=== PATIENT | male | born 1980 | race Caucasian/White ===

== ENCOUNTER 2020-03-26 15:39 | Emergency (ER) | payer OTHER, SELFPAY ==
[2020-03-26] VITALS (36 sets, daily range): BP systolic 134–176; BP diastolic 84–102; PULSE 50–77; RESP 12–19; TEMP 36.5–36.7; O2SAT 95–100
--- NOTE | 2020-03-26 15:51 | W.ED.GENAD ---
Discharge Plan Disposition Patient Disposition: HOME Condition: Improving Discharge Details Chief Complaint: Nausea/Vomit/Diar Clinical Impression: Nausea & vomiting, Acute dehydration, Acute hypokalemia Primary Care Provider: Abbey,Local ED Provider: Claudine Bush Home Meds and New Rx's Prescriptions: New ondansetron 4 mg tablet,disintegrating 4 mg PO Q6H PRN (Reason: nausea and vomiting) Qty: 14 RF: 0 Discharge Instructions Instructions: Potassium Chloride (By mouth), Ondansetron (By mouth), Dehydration (ED), Hypokalemia (ED), Acute Nausea and Vomiting (ED) Additional Instructions: Encourage frequent sips of fluids. You may advance diet as tolerated but please start with basic, easy to digest foods such as bananas, rice, applesauce, toast. You may use the Zofran as prescribed for any recurrent nausea or vomiting. Once you are able to tolerate more by mouth, please take the potassium prescribed to you. If you develop fever/chills, increased pain, difficulty breathing, inability stay hydrated or other new/worsening symptom please seek care urgently once again. Please contact primary care tomorrow to schedule follow-up appointment with recheck of your labs. Discharge Data Discharge Date/Time-TO BE ENTERED AT DEPARTURE: 03/26/20 20:20 Medical Decision Making Patient is a pleasant 39-year-old gentleman presenting today with chief complaint of nausea and vomiting. He reports that he ate bad leftovers 5 days ago. None of these included seafood. He reports that since then he has been experiencing nausea, vomiting. Initially, he was endorsing epigastric pain but he states that this is since subsided. He is currently feeling bloated. Shortly after having the bad food, patient reports that he a large bowel movement and has not had one since then. Denies any hematemesis. States that he is short of breath with exertion but denies any chest pain. Reports generalized weakness and fatigue. States he smokes cigarettes daily, marijuana every 3 days. Denies ETOH use. On exam, patient appears fatigued and dehydrated but nontoxic. Lungs are clear, normal cardiac exam. Abdominal exam is benign. No lower extremity edema or calf tenderness. Patient is receiving hydration. Received IV Zofran and is feeling improved. Labs reviewed. Patient is a white count of 12.9. Potassium is low at 3.1, will replenish this IV. Anion gap is elevated at 18. BUN 20 with a creatinine of 1.2. Troponin is less than 0.05. Lipase within normal limits. EKG was reviewed by Dr. Sal. No acute ischemic changes. Please see her interpretation. Patient is received a total of 2 L of fluid, 20 IV potassium. He is hydrating orally and feels ready for discharge this point. Patient I discussed that this sounds to be linked with his food. Do not see any evidence to suggest acute abdomen. No abdominal pain, no diarrhea. Do not see any evidence to suggest need for imaging. Patient was given strict return precautions. He will follow-up with primary care. He will continue to sip on fluids frequently. We did discuss how to advance his diet. He will be discharged home with another 20 of p.o. potassium to take 1 he is feeling somewhat improved. He will follow-up with primary care next week. Repeat BMP shows anion gap of 12. All of his questions and concerns were addressed and he is in agreement this plan. [facility] General Mode of arrival: ambulatory. Date/Time Provider Initiated Documentation: 03/26/20 15:51. Limitations to Documentation: no limitations. Information obtained by: patient and RN notes reviewed. History of Present Illness 39 year old M presents to the emergency department with the chief complaint of nausea, vomiting, described as moderate, Quality is described as aching (had epigastric pain, since resolved), and is localized to the abdomen. Patient reports no radiation. Patient started experiencing this day(s) (5) and it has been constant (improving). No relieving factors improve symptom(s), Eating worsens symptoms . Patient notes loss of appetite, nausea/vomiting, shortness of breath (states he feels more SOB than typical when going up stairs) and weakness (generalized, associates with current illness); denies chest pain, cough, diaphoresis and fever/chills. Patient did receive the following treatments prior to arrival, none Related Data Home Medications Medication Instructions Recorded Confirmed ondansetron 4 mg PO Q6H PRN #14 tab 03/26/20 Previous Rx's Medication Instructions Recorded ondansetron 4 mg PO Q6H PRN #14 tab 03/26/20 Allergies Allergy/AdvReac Type Severity Reaction Status Date / Time erythromycin base Allergy Unknown as child Unverified 07/29/20 15:50 Review of Systems Constitutional Constitutional: Reports as per HPI, Denies chills, Denies fatigue, Denies fever(s) and Denies headache(s) ENT Ears, Nose, Mouth, and Throat: Denies headache(s) Cardiovascular Cardiovascular: Reports as per HPI, Denies chest pain, Denies dyspnea and Reports dyspnea on exertion Respiratory Respiratory: Reports as per HPI, Denies chest congestion, Denies cough, Denies hemoptysis, Denies pain on inspiration, Denies pain with cough, Denies dyspnea and Reports dyspnea on exertion Gastrointestinal Gastrointestinal: Reports as per HPI, Denies abdominal pain (initially had epigastric pain, since resolved), Denies belching, Denies melena, Reports bloating, Denies hematochezia, Denies coffee ground emesis, Denies constipation, Denies cramping, Denies dyspepsia, Denies diarrhea, Reports loose stools (x 1 initially, none since then), Reports vomiting and Denies hematemesis Genitourinary Genitourinary: Denies system reviewed and no additional complaints, except as documented (patient denies any change in urinary habits) Musculoskeletal Musculoskeletal: Reports as per HPI and Denies back pain Integumentary/Breasts Skin/Breast: Reports as per HPI and Denies rash Neurologic Neurologic: Reports as per HPI and Denies headache(s) Endocrine Endocrine: Denies fatigue [facility] Social History Smoking/Tobacco Use Status: Current every day Tobacco Type: cigarettes Alcohol Intake: current Alcohol Intake frequency: a few times a week Drug use: Occasionally Substance use type: marijuana Do you feel safe at home: Yes Do you feel safe in your relationship?: Yes Exam Const General: cooperative, comfortable, no acute distress, well developed and ill appearing acutely (appears dry) Nutritional Appearance: average body habitus and well nourished Orientation: alert and awake HENMT Head: normal to inspection Mouth: oral mucosae normal and mucous membranes dry Throat: posterior oropharynx normal Resp Effort & Inspection: normal respiratory effort, able to speak in complete sentences and no respiratory distress Auscultation: clear to auscultation bilaterally, no rales, no rhonchi and no wheezes Cardio Rate: regular rate Rhythm: regular rhythm Heart Sounds: S1 normal and S2 normal GI Inspection: normal to inspection, no edema, non-distended, no visible herniation and no visible pulsation Palpation: soft, no hepatosplenomegaly, no aortic enlargement, not firm, no guarding, no hernias, not rigid and nontender Percussion: normal to percussion Auscultation: normal bowel sounds Back/Spine/Pelvis Back: no CVA tenderness Skin General skin exam: no rashes or lesions noted Trauma: no lacerations or abrasions Neuro General: patient alert and patient awake Cognition: normal cognition Speech: speech normal Gait: normal gait Extrem General: normal to inspection, capillary refill normal, no pedal edema, no calf tenderness and normal gait Psych Appearance: grossly normal and well kempt Mental Status: mental status grossly normal Speech and Movement: speech and movement normal
--- NOTE | 2020-03-26 16:15 | RT.EKG_ITS ---
APPROVED REPORT Exam: Resting ECG Patient Location: E HR:48 bpm ECG Measurements Heart Rate 48 AXIS AR 159 P 26 QRSd 100 QRS -37 QT 447 T 39 QTc 401 <Conclusion> Sinus bradycardia...rate< 60 Left axis deviation...QRS axis (-30,-90) non-diagnostic EKG
[2020-03-26 16:28] LABS: Abs Immature Grans 0.04 10^3/uL (0.0-0.06); Absolute Basophil Count 0.04 10^3/uL (0.0-0.2); Absolute Lymphocyte Count 1.95 10^3/uL (1.2-3.4); Absolute Monocyte Count 0.89 10^3/uL (0.1-0.8); Basophils % 0.3; Eosinophils % 0.2; HCT 47.4 % (40.0-50.0); HGB 17.1 g/dL (13.5-17.5); Immature Grans % 0.3; Lymphocytes % 15.1; MCH 31.3 pg (27.0-33.0); MCHC 36.1 % (32.0-36.0); MCV 86.8 fL (80-95); MPV 10.8 fL (8.0-11.0); Monocytes % 6.9; Neutrophils % 77.2; Platelet Count 225 10^3/uL (130-400); RBC 5.46 10^6/uL (4.36-5.78); RDW-SD 38.1 fL; WBC 12.92 10^3/uL (4.4-10.8)
[2020-03-26] MEDS: Ondansetron 4 MG/2 ML VIAL IVP (16:32)
[2020-03-26 16:34] LABS: Absolute Eosinophil Count 0.03 10^3/uL (0.0-0.7); Absolute Neutrophil Count 9.97 10^3/uL (1.2-6.7)
[2020-03-26 16:44] LABS: ALT 32 U/L (16-63); AST 16 U/L (15-37); Albumin 4.7 g/dL (3.4-5.0); Alkaline Phosphatase 82 U/L (46-116); Anion Gap 18.3 mmol/L (3-11); BUN 20 mg/dL (7-18); Bilirubin, Total 1.2 mg/dL (0.2-1.0); CO2 20.7 mmol/L (21.0-32.0); Chloride 98 mmol/L (98-107); Glucose 102 mg/dL (74-106); Potassium 3.1 mmol/L (3.5-5.1); Sodium 137 mmol/L (136-145); Total Protein 8.6 g/dL (6.4-8.2)
[2020-03-26 16:49] LABS: Lipase 79 U/L (73-393); Troponin I < 0.05 ng/mL (<0.06)
[2020-03-26] MEDS: Lactated Ringers 1,000 ML 1000 ML IV (16:53)
[2020-03-26] MEDS: Normal Saline 1,000 ML 1000 ML IV (17:05)
[2020-03-26] MEDS: POTASSIUM CHLORIDE 20 MEQ/100 ML BAG 50 MEQ IVPB (17:15)
[2020-03-26] MEDS: Lactated Ringers 500 ML IV (19:30)
[2020-03-26 19:50] LABS: Anion Gap 12.6 mmol/L (3-11); BUN 16 mg/dL (7-18); CO2 23.4 mmol/L (21.0-32.0); CREATININE 1.11 mg/dL (0.70-1.30); Calcium 8.2 mg/dL (8.5-10.1); Chloride 102 mmol/L (98-107); Glucose 92 mg/dL (74-106); Potassium 3.2 mmol/L (3.5-5.1); Sodium 138 mmol/L (136-145)
--- NOTE | 2020-03-26 20:03 | NUR.NOTE ---
REFRERAL TO CM TO ESTABLISH A PCP03/26/20Nursing Note:
[2020-03-26] MEDS: Ondansetron O.D.T. 4 MG TABEF, 3 TABS/BTL PO (20:18)
[2020-03-26] MEDS: Potassium Chloride 20 MEQ TABCR PO (20:18)
--- NOTE | 2020-03-27 09:24 | CMPROGNOTE_ITS ---
- If Service Date Differs Date of service: 03/27/20 Time of Service: 09:24 Care Management Progress Note Bernard is seen in the ED for nausea, vomiting, acute dehydration, and acute hypokalemia. He is instructed to follow up with his PCP and to have his labs rechecked, but Bernard reports he does not have a local primary care physician. At the request of ED provider, coordinates a referral to Ara Govea MD, teledoc, of [facility], to assist Bernard in obtaining a follow up dari ointment and in establishing care with PCP. Bernard has [place] Medicaid, so a request is made for the community rn clinical resource at [facility] to provide assistance to Bernard in transferring his Medicaid from [place] to [place].
== END 2020-03-26 20:20 | disposition home or self-care (01) ==
PROVIDERS: Emergency Provider Physician Assistant
DX: R11.2 Nausea with vomiting, unspecified (principal); E86.0 Dehydration; E87.6 Hypokalemia; R53.1 Weakness; R14.0 Abdominal distension (gaseous)
CPT/HCPCS: 36415; 80048; 80053; 83690; 93005; 96361; 96365; 96366; 96375; 99284; 81003; 84484; 85025; 93010; J2405; J3480

== ENCOUNTER 2020-09-08 10:33 | Outpatient (REF) | payer MEDICAID, SELFPAY ==
[2020-09-08 15:41] LABS: Anion Gap 10.7 mmol/L (3-11); BUN 13 mg/dL (7-18); CO2 22.3 mmol/L (21.0-32.0); CREATININE 1.01 mg/dL (0.70-1.30); Calculated LDL 127 mg/dL (<100); Chloride 105 mmol/L (98-107); Cholesterol 183 mg/dL (<200); Glucose 95 mg/dL (74-106); HDL Cholesterol 32 mg/dL (40-60); Sodium 138 mmol/L (136-145); Triglyceride 123 mg/dL (<150)
[2020-09-09 09:53] LABS: Hepatitis C Ab w Rflx HCV PCR Negative (Negative)
[2020-09-09 10:12] LABS: HIV-1/2 Ag & Ab Screen Negative (Negative)
== END 2020-09-08 10:53 ==
LOC: NCHCN 10:33
PROVIDERS: Visit Provider Nurse Practitioner Family
DX: Z86.39 Personal history of other endocrine, nutritional and metabolic disease (principal); Z13.220 Encounter for screening for lipoid disorders; Z11.4 Encounter for screening for human immunodeficiency virus [HIV]; Z11.59 Encounter for screening for other viral diseases
CPT/HCPCS: 80048; 80061; 86803; 87389

== ENCOUNTER 2020-12-15 09:56 | Day surgery (SDC) | payer MEDICAID, SELFPAY ==
[2020-12-15] VITALS (38 sets, daily range): BP systolic 123–165; BP diastolic 75–105; PULSE 50–84; RESP 12–23; TEMP 36.4–36.9; O2SAT 94–99
[2020-12-15] MEDS: Normal Saline 1,000 ML 1000 ML IV ×2 (10:16→11:20)
--- NOTE | 2020-12-15 10:26 | ED.GENADUL_ITS ---
Discharge Plan Disposition Condition: Stable Discharge Details Chief Complaint: Nausea/Vomit/Diar Attending Provider: Wilder Gerardo Primary Care Provider: Abbey,Local ED Provider: Megan Leach Discharge Instructions Activity:: No lifting more than 20 pounds for 1 month Shower/Bathe:: 24 hours Diet:: As Tolerated Discharge Orders Discharge Orders: Discharge Order (Routine); Ordered 12/15/20 Ordered By: Wilder Gerardo Discharge Data Discharge Date/Time-TO BE ENTERED AT DEPARTURE: 12/15/20 13:36 Medical Decision Making 40-year-old male presents the ER with chief complaint of nausea vomiting and abdominal pain which began on or Tuesday. He states he has been unable to keep anything down he is able to tolerate mild amount of fluid p.o. on initial exam he has some left upper quadrant tenderness with palpation and right lower quadrant tenderness with palpation. He denies any dysuria or problems urinating. He denies any hematochezia or blood in his vomit. 1124: Spoke with radiologist Dr. Horta regarding CT results positive for acute appendicitis. He reports measures approximately 2 cm. General surgery paged. White blood cell count 16.29, absolute neutrophils 13.60 CMP largely within normal limits glucose 113, bilirubin 1.1. Urinalysis is pending at this time. Discussed CT results and plan of care with patient who verbalizes understanding. 1143: Spoke with Dr. Bennett who is on for general surgery regarding patient case and details. He verbalizes understanding and recommends Zosyn IV piggyback at this time. Order placed. He states he will come to the department for patient. 1230: General surgeon here in the department for patient eval. Plan is to take patient to surgery. HPI General Mode of arrival: ambulatory . Date/Time Provider Initiated Documentation: 12/15/20 10:05 . Limitations to Documentation: no limitations . Information obtained by: patient . HPI Narrative: 40-year-old male presents the ER with chief complaint of nausea vomiting and abdominal pain which began on or Tuesday. He states he has been unable to keep anything down he is able to tolerate mild amount of fluid p.o. on initial exam he has some left upper quadrant tenderness with palpation and right lower quadrant tenderness with palpation. He denies any dysuria or problems urinating. He denies any hematochezia or blood in his vomit. Related Data Home Medications Medication Instructions Recorded Confirmed ondansetron 4 mg PO Q6H PRN #14 tab 03/26/20 12/15/20 tramadol 50 mg PO Q6H PRN PRN 3 Days #12 tab 12/15/20 Previous Rx's Medication Instructions Recorded ondansetron 4 mg PO Q6H PRN #14 tab 03/26/20 tramadol 50 mg PO Q6H PRN PRN 3 Days #12 tab 12/15/20 Allergies Allergy/AdvReac Type Severity Reaction Status Date / Time erythromycin base Allergy Unknown as child Unverified 12/15/20 10:06 General Stated Complaint: Nausea/Vomit/Diar MARCEL: 3 Review of Systems All systems reviewed & are unremarkable except as noted in HPI and below Gastrointestinal Gastrointestinal: Reports as per HPI, Reports abdominal pain, Reports nausea and Reports vomiting PFSH Social History Smoking/Tobacco Use Status: Current every day Tobacco Type: cigarettes Smoking risk assessment performed?: Yes Alcohol Intake: current Alcohol Intake frequency: a few times a week Drug use: Occasionally Substance use type: marijuana Do you feel safe at home: Yes Do you feel safe in your relationship?: Yes Exam Narrative Exam Narrative: Constitutional: Alert and oriented x3. Appears stated age. Normal body habitus. Head: Normocephalic, no trauma. Eyes: Pupils PERRLA, Red reflex noted, EOM's intact. Eyelids symmetrical without lesions, discharge, or swelling. ENT: Bilateral TM's WNL, External ear normal to inspection, no mastoid TTP, swelling, or erythema, Nasal turbinates WNL, no nasal discharge. Normal dentition, Posterior pharynx WNL, no exudate. Chest: RRR, Normal S1, S2, distal pulses intact. Resp: Lungs clear to auscultation bilaterally, no wheezes, rales, or rhonchi. Abdomen: Soft, tender to palpation left upper quadrant right lower quadrant. Diminished bowel sounds. Musculoskeletal: Normal gait, 5/5 strength to all four extremities. Skin: No suspicious rashes or lesions. Capillary refill less than 2 sec. Neurologic: Cranial nerves II-XII intact. Alert and oriented x 3. DTR's intact. Hematologic/Lymphatic: No ecchymosis, no lymphadenopathy. Course Vital Signs Vital signs: Vital Signs Temperature 36.9 C 12/15/20 10:02 Pulse 63 12/15/20 10:02 Respiratory Rate 20 12/15/20 10:02 Blood Pressure 131/86 12/15/20 10:02 Pulse Oximetry 95 12/15/20 10:02 Temperature 36.9 C 12/15/20 10:02 Temperature Source Skin 12/15/20 10:02 Pulse 63 12/15/20 10:02 Respiratory Rate 20 12/15/20 10:02 Respiratory Effort Non-Labored 12/15/20 10:14 Blood Pressure 131/86 12/15/20 10:02 Blood Pressure Position Sitting 12/15/20 10:02 Pulse Oximetry 95 12/15/20 10:02 Oxygen Delivery Method Room Air 12/15/20 10:02 Oxygen Flow Rate 0 12/15/20 10:02 Pain Level 2 12/15/20 10:02
[2020-12-15 10:34] LABS: Abs Immature Grans 0.11 10^3/uL (0.0-0.06); Absolute Basophil Count 0.03 10^3/uL (0.0-0.2); Absolute Lymphocyte Count 1.43 10^3/uL (1.2-3.4); Absolute Monocyte Count 1.09 10^3/uL (0.1-0.8); Basophils % 0.2; Eosinophils % 0.1; HCT 47.1 % (40.0-50.0); HGB 16.3 g/dL (13.5-17.5); Immature Grans % 0.7; Lymphocytes % 8.8; MCH 30.8 pg (27.0-33.0); MCHC 34.6 % (32.0-36.0); MCV 88.9 fL (80-95); MPV 10.5 fL (8.0-11.0); Monocytes % 6.7; Neutrophils % 83.5; Nucleated RBC 0 %; Platelet Count 200 10^3/uL (130-400); RDW 12.3 % (11.8-14.1); RDW-SD 40.3 fL; WBC 16.29 10^3/uL (4.4-10.8)
[2020-12-15 10:38] LABS: Absolute Eosinophil Count 0.02 10^3/uL (0.0-0.7)
[2020-12-15 10:44] LABS: ALT 47 U/L (16-63); AST 30 U/L (15-37); Albumin 4.3 g/dL (3.4-5.0); Alkaline Phosphatase 86 U/L (46-116); Anion Gap 9.9 mmol/L (3-11); BUN 16 mg/dL (7-18); Bilirubin, Total 1.1 mg/dL (0.2-1.0); CO2 28.1 mmol/L (21.0-32.0); CREATININE 1.2 mg/dL (0.70-1.30); Calcium 9.6 mg/dL (8.5-10.1); Chloride 100 mmol/L (98-107); Glucose 113 mg/dL (74-106); Lipase 123 U/L (73-393); Magnesium 1.9 mg/dL (1.8-2.4); Potassium 3.6 mmol/L (3.5-5.1); Sodium 138 mmol/L (136-145); Total Protein 8.3 g/dL (6.4-8.2)
[2020-12-15] MEDS: Normal Saline - Diluent 50 ML VIAL IV (11:12)
[2020-12-15] MEDS: Normal Saline Flush 10 ML SYR IVP (11:12)
--- NOTE | 2020-12-15 11:15 | DI.CT_ITS ---
EXAM: CT ABDOMEN PELVIS W CLINICAL HISTORY: RLQ abd pain, LUQ abd pain, Nausea Vomiting. TECHNIQUE: Imaging Protocol: Axial computed tomography images with coronal and sagittal reformatted images were created and reviewed CONTRAST MATERIAL: Intravenous: Visipaque 320-100 cc Oral: None COMPARISON: No exams were available for comparison FINDINGS: VISUALIZED LUNG BASES: There are mild benign-appearing increased markings in both lung bases. Mostly in the posterior basal segments of both lower lobes. There are no associated pleural effusions on e ither side.. ABDOMEN: There is no ascites. LIVER: There are no focal hepatic lesions evident . GALLBLADDER/BILIARY: No obvious gallbladder pathology. CBD is not dilated. PANCREAS: No evidence of pancreatic mass nor dilatation of the pancreatic duct. SPLEEN: Spleen is not enlarged. No obvious intrasplenic lesions. Splenic and portal veins are paten t. ADRENALS: There are no significant adrenal masses. KIDNEYS:No cysts evident. No solid renal masses. No calculi nor hydronephrosis.. ABDOMINAL AORTA: Abdominal aorta is not enlarged. LYMPH NODES:There is no retroperitineal nor paraaortic adenopathy. ABDOMINAL WALL/GI: No evidence of significant anterior abdominal wall hernia. No bowel obstruction. PELVIS: GI: The appendix is abnormal. There is an appendicular lith at the junction of the appendix and cecu m and the appendix is grossly swollen to a diameter of 1.9 cm. There is also periappendiceal streaki ng.No evidence of sigmoid diverticulitis. LYMPH NODES: There is no intrapelvic nor inguinal adenopathy. REPRODUCTIVE: Age-appropriate URINARY BLADDER: No calculi nor obvious masses evident OSSEOUS: No significant osseous lesions. IMPRESSION: 1. Findings are consistent with acute appendicitis. Surgical consultation is recommended Findings called by myself to the emergency room provider 12/15/2020 following completion of the study . RADIATION DOSE DELIVERED: 885.28mGy.cm Total DLP DATA REPOSITORY: All CT scans at this facility are submitted to the National Radiology Data Registry (NRDR) Dose Index Registry (DIR) with the [employer] (ACR). RADIATION OPTIMIZATION: All CT scans at this facility use at least one of these dose optimization te chniques: automated exposure control; mA and/or kV adjustment per patient size (includes targeted exa ms where dose is matched to clinical indication); or iterative reconstruction.
[2020-12-15] MEDS: PIPERACILLIN/TAZO 3.375 GM in Normal Saline 50 ML IVPB (11:58)
--- NOTE | 2020-12-15 12:39 | W.PM.HP.N ---
Date of service: 12/15/20 Time of Service: 12:08 Assessment and Plan Assessment and plan (1) Abdominal pain: Status: Acute Review of Systems All systems reviewed & are unremarkable except as noted in HPI and below PFSH Social History Smoking/Tobacco Use Status: Current every day Tobacco Type: cigarettes Smoking risk assessment performed?: Yes Alcohol Intake: current Alcohol Intake frequency: a few times a week Drug use: Occasionally Substance use type: marijuana Do you feel safe at home: Yes Do you feel safe in your relationship?: Yes Meds Allergies and Home Medications Allergies Allergy/AdvReac Type Severity Reaction Status Date / Time erythromycin base Allergy Unknown as child Unverified 12/15/20 10:06 Home Medications Medication Instructions Recorded Confirmed Type ondansetron 4 mg PO Q6H PRN #14 tab 03/26/20 12/15/20 Rx Exam Const General: cooperative and no acute distress Nutritional Appearance: well nourished Other: appears mildly ill HENMT Head: normal to inspection Ears: hearing grossly normal bilaterally Eyes Sclera: sclerae normal Resp Effort & Inspection: normal respiratory effort and able to speak in complete sentences Cardio Rate: regular rate GI Inspection: scaphoid Palpation: guarding (modest focally in RLQ) and tender in the RLQ and at McBurney's point Skin General skin exam: turgor normal Neuro General: patient alert and patient oriented x3 Results Labs Result diagrams: 12/15/20 10:10 12/15/20 10:10 Labs: Laboratory Results - last 24 hr 12/15/20 12/15/20 10:10 10:10 WBC 16.29 H RBC 5.30 Hgb 16.3 Hct 47.1 MCV 88.9 MCH 30.8 MCHC 34.6 RDW 12.3 Plt Count 200 MPV 10.5 Immature Gran % 0.7 Neutrophils % 83.5 Lymphocytes % 8.8 Monocytes % 6.7 Eosinophils % 0.1 Basophils % 0.2 Nucleated RBC % 0 Absolute Neutrophils 13.60 H Absolute Lymphocytes 1.43 Absolute Monocytes 1.09 H Absolute Eosinophils 0.02 Absolute Basophils 0.03 Sodium 138 Potassium 3.6 Chloride 100 Carbon Dioxide 28.1 Anion Gap 9.9 BUN 16 Creatinine 1.2 Estimated GFR/1.73 m2 >= 60.00 Glucose 113 H Calcium 9.6 Magnesium 1.9 Total Bilirubin 1.1 H AST 30 ALT 47 Alkaline Phosphatase 86 Total Protein 8.3 H Albumin 4.3 Lipase 123 Last Vital Signs Temp 98.4 F 12/15/20 10:02 Pulse 61 12/15/20 12:15 Resp 20 12/15/20 12:15 BP 141/75 H 12/15/20 12:15 Pulse Ox 97 12/15/20 12:15 COVID-19 Screening Have you, or household traveled for leisure in last 14 days?: No Had IN PERSON contact w/suspected or confirmed C-19 person: No
[2020-12-15 13:18] LABS: Bilirubin Negative (Negative); Blood Negative (Negative); Clarity Clear (Clear); Glucose Negative (Negative); Ketones 15 mg/dL (Negative); Leukocyte Esterase Negative (Negative); Nitrite Negative (Negative); Specific Gravity 1.015 (1.005-1.025)
[2020-12-15 13:26] LABS: COVID-19 PCR Negative (Negative)
[2020-12-15 13:32] LABS: Epithelial Cells Rare HPF (Negative); RBC Negative HPF (0-2); WBC 0-2 HPF (0-5)
[2020-12-15 13:33] LABS: Bacteria Negative HPF (Negative); C & S Indicated? No; Casts Negative LPF (Negative); Crystals Negative HPF (Negative); Mucus Trace (Negative)
[2020-12-15] MEDS: Lactated Ringers 1,000 ML 30 ML IV (13:41)
--- NOTE | 2020-12-15 14:38 | APP_PTH ---
PATIENT: Bernard Saucedo LOC: [facility] U#:[id number] AGE/SX: 40/M ROOM: RE12/15/[address]: Wilder Gerardo MD : 1980 BED: DIS: 12/15/2020 SPEC #: [id number] RECD: 12/15/20 16:58 STATUS: LENY REQ #: [id number] VIKKI: 12/15/20 14:[address]: Wilder Gerardo DEPT: Surgical Specimen RECD BY: Izabel Alfredo ENTERED: 12/15/20 16:59 SP TYPE: Appendix OTHR DR: No Local Tissues: 1 - APPENDIX NOT INCIDENTAL Procedures: GROSS AND MICRO LEVEL 3 Comments: [id number]
[2020-12-15] MEDS: Bupivacaine 0.5% Pres-Free 30 ML VIAL (14:44)
--- NOTE | 2020-12-15 15:43 | W.PM.OP ---
Operative Note Operative Note DATE OF PROCEDURE: 12/15/20 PRE-OP DIAGNOSIS: Acute appendicitis POST-OP DIAGNOSIS: same PROCEDURE: laparoscopic appendectomy SURGEON: Wilder Gerardo ANESTHESIA TYPE: General LMA/ETT Refer to Anesthesia Record TOURNIQUET TIME: 30 COMPLICATIONS: None Patient was transported to: PACU Patient's condition: stable Indications: Constellation of laboratory studies and CT imaging consistent with acute appendicitis Findings: Acutely inflamed, nonperforated appendicitis Procedure Description: Indication and Consent:The constellation of history, physical exam, imaging and/or laboratory studies suggest appendicitis. Patient has been counselled regarding surgical treatment and laparoscopic appendectomy has been advised. Risks including bleeding , infection, injury to other organs , failure to identify pathology or alternate etiologies for symptoms are among those discussed. The distinctions between the difficulty of the procedure and of potential rates of complication in the context of perforated versus nonperforated appendicitis is outlined. The potential need for conversion to open, incisional operation is also addressed. . Benefits of appendectomy and alternative treatment with antibiotics alone are discussed. All questions from patient and/or family are addressed. Consent is obtained. DESCRIPTION OF PROCEDURE: The patient was taken to the operating suite and placed on the operating room table in the supine position. General endotracheal anesthesia was induced. Sequential SALVADOR stockings were applied. The abdomen was prepped and draped in a sterile fashion. A periumbilical incision was made and carried into the abdominal cavity with Jenkins technique. An 12 mm trocar site was established. Pneumoperitoneum was induced. The abdomen was inspected. There was no sign of visceral injury due to trocar placement. Two additional 5 mm trocars were placed in the suprapubic and left lower quadrant respectively. The appendix was noted to be somewhat adherent to the surrounding viscera and pelvic wall. These inflammatory adhesions are easily broken down with modest blunt technique. The appendix is turgid and inflamed. There is no significant exudate and no sign of perforation. The bulky, fatty mesoappendix was taken down with electrocautery. Hemostasis was maintained throughout. The base the appendix and its junction with cecum was clearly identified. A Vicryl Surg-I-Loop is placed about the appendix and utilized to ligate the appendix at its junction with cecum. A 6 mm long appendiceal stump is left and the appendix is excised and placed within a specimen bag. A small amount of irrigant is used to cleanse the pericecal area. Hemostasis was again assured and the appendiceal stump appears well controlled. The specimen was placed within a retrieval bag and removed without incident via the periumbilical port. Trocars were removed under direct vision. There is no bleeding from the anterior abdominal wall. Midline fascial defect is closed with [id number] 0 Vicryl suture. Each trocar site was closed at skin level with subcuticular 4-0 Monocryl. The patient tolerated the procedure well. There were no evident complications. The patient was in satisfactory condition throughout. All counts were reported as correct. Laparoscopic photographs were taken and are scanned tothe patients chart by nursing.
--- NOTE | 2020-12-15 17:11 | CMACTNOTE_ITS ---
- If Service Date Differs Date of service: 12/15/20 Time of Service: 17:11 Care Management Activity Note CM schedules an RCT ride for Bernard from [facility] day surgery to the [facility], so he can fill his prescription, and then home to [place].
--- NOTE | 2020-12-15 17:11 | PDOC.CMACT ---
- If Service Date Differs Date of service: 12/15/20 Time of Service: 17:11 Care Management Activity Note CM schedules an RCT ride for Bernard from [facility] day surgery to the [facility], so he can fill his prescription, and then home to [place].
== END 2020-12-15 17:50 | disposition home or self-care (01) ==
LOC: ER 12:44 → SUR 13:35
PROVIDERS: Emergency Provider Registered Nurse Emergency; Visit Provider Surgery Vascular Surgery
PROC: 0DTJ4ZZ Resection of Appendix, Percutaneous Endoscopic Approach (ICD-10-PCS; CPT 44970; principal; 2020-12-15 13:00)
DX: K35.890 Other acute appendicitis without perforation or gangrene (principal)
CPT/HCPCS: 44970; 36415; 80053; 83690; 87635; 96361; 96365; 96367; 99222; 99285; 74177; 81003; 81015; 83735; 85025; 88304; 99284; J0131; J1100; J1885; J2001; J2250; J2405; J2543; J2704; J3010

== ENCOUNTER 2020-12-25 11:21 | Emergency (ER) | payer MEDICAID, SELFPAY ==
[2020-12-25] VITALS (14 sets, daily range): BP systolic 130–144; BP diastolic 83–114; PULSE 51–79; RESP 11–20; TEMP 36.4–36.9; O2SAT 98–100
--- NOTE | 2020-12-25 11:26 | ED.GENADUL_ITS ---
Discharge Plan Disposition Patient Disposition: HOME Condition: Improving Discharge Details Clinical Impression: Nausea, S/P laparoscopic appendectomy Primary Care Provider: [facility],Local ED Provider: Rhonda Acevedo Home Meds and New Rx's Prescriptions: New ondansetron 4 mg tablet,disintegrating 4 mg PO TID PRN (Reason: nausea and vomiting) Qty: 6 RF: 0 Continued ondansetron 4 mg tablet,disintegrating 4 mg PO Q6H PRN (Reason: nausea and vomiting) Qty: 14 RF: 0 Discharge Instructions Instructions: Acute Nausea and Vomiting (ED) Additional Instructions: Drink plenty of fluids and get plenty of rest. Alternate tylenol and motrin as needed and directed for pain. Your prescription has been sent electronically to your pharmacy. Call the pharmacy to make sure your prescription is ready before pickup. Take the prescription as directed. Follow-up in the surgery office tomorrow for a follow-up appointment at 9:45 AM. Return immediately to the emergency department if you develop any worsening or new concerning symptoms. Referrals: Sallie Salgado PA [[facility]] - 12/26/20 9:45 am Discharge Data Discharge Date/Time-TO BE ENTERED AT DEPARTURE: 12/25/20 14:21 Discharge Physician: Rhonda Acevedo Medical Decision Making 40-year-old male 10 days status post laparoscopic cholecystectomy presents for extreme nausea this morning. Sent by Dr. Xiao for labs and imaging to rule out small bowel obstruction versus abscess. Patient denies any fever or abdominal pain. Patient appears uncomfortable in terms of nausea. His abdomen is soft and nontender and he denies any abdominal pain. Laparoscopic incision site without evidence of cellulitis. Screening labs and CT abdomen pelvis with oral and IV contrast ordered per Dr. Barrett. Patient was given a dose of Zofran and IV fluids on arrival but complaining of persistent nausea and given a dose of Compazine. Labs reviewed. White blood cell count 11.8. Potassium 3.4. Lipase within normal limits. CT reviewed and noted streaking at surgical site but no evidence of fluid collection or drainable abscess or bowel obstruction. CT reviewed with Dr. Xiao. Patient reassessed and he feels much better and denies any nausea or pain at this time he feels good to go home. A prescription for Zofran was sent electronically to his pharmacy. An appointment was made for patient at the surgery office tomorrow at 9:45 AM. Usual and customary return precautions given prior to discharge. Medical Records Medical records reviewed: Yes I reviewed the patient's medical records. Imaging Data Radiologic Study: Radiologist's impression: CT ABDOMEN PELVIS W CLINICAL HISTORY: recent appy, r/o abscess. TECHNIQUE: Imaging Protocol: Axial computed tomography images with coronal and sagittal reformatted images were created and reviewed CONTRAST MATERIAL: Intravenous: Omnipaque 100cc Oral: None COMPARISON: CT CT ABDOMEN PELVIS W from 12/15/2020 FINDINGS: VISUALIZED LUNG BASES: Mild pleural based infiltrate noted in the posterior basal segments of both lower lobes. No pleural effusions. ABDOMEN: There is no ascites. LIVER: There are no focal hepatic lesions evident . GALLBLADDER/BILIARY: No obvious gallbladder pathology. CBD is not dilated. PANCREAS: No evidence of pancreatic mass nor dilatation of the pancreatic duct. SPLEEN: Spleen is not enlarged. No obvious intrasplenic lesions. Splenic and portal veins are patent. ADRENALS: There are no significant adrenal masses. KIDNEYS:No cysts evident. No solid renal masses. No calculi nor hydronephrosis.. ABDOMINAL AORTA: Abdominal aorta is not enlarged. LYMPH NODES:There is no retroperitineal nor paraaortic adenopathy. ABDOMINAL WALL/GI: No evidence of significant anterior abdominal wall hernia. No bowel obstruction. PELVIS: GI: There has been interval appendectomy.Some streaking is seen in this region but there is no drainable fluid collection. There is no free fluid in the dependent aspect pelvis.. No bowel obstruction. LYMPH NODES: There is no intrapelvic nor inguinal adenopathy. REPRODUCTIVE: Prostate not enlarged. URINARY BLADDER: Unremarkable. OSSEOUS: No significant osseous lesions. IMPRESSION: 1. Compared to the prior CT scan of 12/15/2020 there has been interval appendectomy. There is some streaking in this region but no evidence of drainable fluid collection at this time.. There is also no free fluid in the dependent aspect of the pelvis. No bowel obstruction 2. Mild infiltrate both lung bases. No pleural effusions. Lab Data Lab results reviewed: Yes I reviewed the patient's lab results. Labs: Laboratory Tests Range/Units 12/25/20 12/25/20 11:34 11:34 WBC (4.4-10.8) 10^3/uL 11.85 H RBC (4.36-5.78) 10^6/uL 5.07 Hgb (13.5-17.5) g/dL 15.5 Hct (40.0-50.0) % 45.4 MCV (80-95) fL 89.5 MCH (27.0-33.0) pg 30.6 MCHC (32.0-36.0) % 34.1 RDW (11.8-14.1) % 12.1 Plt Count (130-400) 10^3/uL 303 D MPV (8.0-11.0) fL 10.4 Immature Gran % 0.4 Neutrophils % 81.2 Lymphocytes % 13.7 Monocytes % 3.8 Eosinophils % 0.6 Basophils % 0.3 Nucleated RBC % % 0 Absolute Neutrophils (1.2-6.7) 10^3/uL 9.62 H Absolute Lymphocytes (1.2-3.4) 10^3/uL 1.62 Absolute Monocytes (0.1-0.8) 10^3/uL 0.45 Absolute Eosinophils (0.0-0.7) 10^3/uL 0.07 Absolute Basophils (0.0-0.2) 10^3/uL 0.04 Sodium (136-145) mmol/L 144 Potassium (3.5-5.1) mmol/L 3.4 L Chloride (98-107) mmol/L 105 Carbon Dioxide (21.0-32.0) mmol/L 25.3 Anion Gap (3-11) mmol/L 13.7 H BUN (7-18) mg/dL 11 Creatinine (0.70-1.30) mg/dL 1.0 Estimated GFR/1.73 m2 (mL/min/1.73m2) >= 60.00 Glucose (74-106) mg/dL 106 Calcium (8.5-10.1) mg/dL 9.2 Total Bilirubin (0.2-1.0) mg/dL 0.4 AST (15-37) U/L 15 ALT (16-63) U/L 34 Alkaline Phosphatase (46-116) U/L 67 Total Protein (6.4-8.2) g/dL 7.6 Albumin (3.4-5.0) g/dL 3.9 Lipase (73-393) U/L 90 HPI General Mode of arrival: ambulatory . Date/Time Provider Initiated Documentation: 12/25/20 11:25 . Limitations to Documentation: no limitations . Information obtained by: patient . HPI Narrative: Patient is a 40-year-old male who is 10 days status post laparoscopic appendectomy presents with nausea this morning. He was sent by Dr. Xiao to the emergency department after she saw him in the office today for labs and CT imaging to rule out abscess or small bowel obstruction. Patient had a laparoscopic appendectomy with Dr. Gerardo on 12/15/2020. He states he had his first bowel movement approximately 6 days later and his second bowel movement this morning. He denies any significant pain but states after the bowel movement this morning he developed extreme nausea. He denies any known fever, vomiting, diarrhea, rectal bleeding. He again currently denies any abdominal pain. Related Data Home Medications Medication Instructions Recorded Confirmed ondansetron 4 mg PO Q6H PRN #14 tab 03/26/20 12/26/20 ondansetron 4 mg PO TID PRN #6 tab 12/25/20 12/26/20 Previous Rx's Medication Instructions Recorded ondansetron 4 mg PO Q6H PRN #14 tab 03/26/20 ondansetron 4 mg PO TID PRN #6 tab 12/25/20 Allergies Allergy/AdvReac Type Severity Reaction Status Date / Time erythromycin base Allergy Unknown as child Unverified 12/26/20 09:45 General MARCEL: 3 Review of Systems All systems reviewed & are unremarkable except as noted in HPI and below Constitutional Constitutional: Reports as per HPI, Denies chills and Denies fever(s) Eyes Eyes: Denies blurry vision ENT Ears, Nose, Mouth, and Throat: Denies dizziness, Denies sore throat and Denies throat swelling Cardiovascular Cardiovascular: Denies chest pain and Denies dyspnea Respiratory Respiratory: Denies cough and Denies dyspnea Gastrointestinal Gastrointestinal: Denies abdominal pain, Denies diarrhea, Reports nausea and Denies vomiting Genitourinary Genitourinary: Denies hematuria and Denies dysuria Musculoskeletal Musculoskeletal: Denies back pain and Denies numbness Integumentary/Breasts Skin/Breast: Denies lesions and Denies rash Neurologic Neurologic: Denies dizziness, Denies localized weakness and Denies numbness Allergic/Immunologic Allergic/Immunologic: Denies throat swelling [facility] Medical History (Updated 12/25/20 @ 14:03 by JACQUELINE GORDON) No significant past medical history Surgical History (Updated 12/25/20 @ 14:03 by JACQUELINE GORDON) History of appendectomy 12/15/20 Social History Smoking/Tobacco Use Status: Current every day Tobacco Type: cigarettes Smoking risk assessment performed?: Yes Alcohol Intake: current Alcohol Intake frequency: a few times a week Drug use: Occasionally Substance use type: marijuana Do you feel safe at home: Yes Do you feel safe in your relationship?: Yes Exam Const General: cooperative and no acute distress HENMT Head: normal to inspection Face and sinus: normal facial exam Eyes General: appearance normal, both eyes and all related structures EOM: EOM intact bilaterally Neck Neck: normal visual inspection and No submandibular swelling Lymphatic: no lymphadenopathy noted Chest Chest: normal inspection of the chest and no tenderness Resp Effort & Inspection: normal respiratory effort and able to speak in complete sentences Auscultation: clear to auscultation bilaterally Cardio Rate: regular rate Rhythm: regular rhythm GI Inspection: scar (laparoscopy incision sites healing well w/o cellulitis) Palpation: soft, not firm, not rigid and nontender Auscultation: hypoactive bowel sounds Skin General skin exam: no rashes or lesions noted Neuro General: patient alert, patient awake and patient oriented x3 Cognition: normal cognition Speech: speech normal Motor: muscle tone normal throughout Sensory Exam: no sensory deficits noted Extrem General: normal to inspection, full ROM, capillary refill normal, no calf tenderness bilaterally and no edema Psych Appearance: grossly normal Mental Status: mental status grossly normal Speech and Movement: speech and movement normal Affect: normal affect
[2020-12-25 11:41] LABS: Abs Immature Grans 0.05 10^3/uL (0.0-0.06); Absolute Basophil Count 0.04 10^3/uL (0.0-0.2); Absolute Eosinophil Count 0.07 10^3/uL (0.0-0.7); Absolute Lymphocyte Count 1.62 10^3/uL (1.2-3.4); Absolute Monocyte Count 0.45 10^3/uL (0.1-0.8); Absolute Neutrophil Count 9.62 10^3/uL (1.2-6.7); Basophils % 0.3; Eosinophils % 0.6; HCT 45.4 % (40.0-50.0); HGB 15.5 g/dL (13.5-17.5); Immature Grans % 0.4; Lymphocytes % 13.7; MCH 30.6 pg (27.0-33.0); MCHC 34.1 % (32.0-36.0); MCV 89.5 fL (80-95); MPV 10.4 fL (8.0-11.0); Monocytes % 3.8; Neutrophils % 81.2; Nucleated RBC 0 %; Platelet Count 303 10^3/uL (130-400); RBC 5.07 10^6/uL (4.36-5.78); RDW 12.1 % (11.8-14.1); RDW-SD 40.1 fL; WBC 11.85 10^3/uL (4.4-10.8)
[2020-12-25] MEDS: Normal Saline 1,000 ML 1000 ML IV (11:41)
[2020-12-25] MEDS: Ondansetron 4 MG/2 ML VIAL IVP (11:41)
[2020-12-25] MEDS: Omnipaque 350 MG/ML 50 ML BTL IJ (11:42)
[2020-12-25] MEDS: Breeza Beverage 473 ML BTL PO ×2 (11:43→11:44)
[2020-12-25 11:55] LABS: ALT 34 U/L (16-63); AST 15 U/L (15-37); Albumin 3.9 g/dL (3.4-5.0); Alkaline Phosphatase 67 U/L (46-116); Anion Gap 13.7 mmol/L (3-11); BUN 11 mg/dL (7-18); Bilirubin, Total 0.4 mg/dL (0.2-1.0); CO2 25.3 mmol/L (21.0-32.0); Calcium 9.2 mg/dL (8.5-10.1); Chloride 105 mmol/L (98-107); Glucose 106 mg/dL (74-106); Lipase 90 U/L (73-393); Potassium 3.4 mmol/L (3.5-5.1); Sodium 144 mmol/L (136-145); Total Protein 7.6 g/dL (6.4-8.2)
[2020-12-25] MEDS: Prochlorperazine 10 MG/2 ML VIAL IVP (12:05)
[2020-12-25] MEDS: Normal Saline - Diluent 50 ML VIAL IV (12:52)
[2020-12-25] MEDS: Omnipaque 350 MG/ML 100 ML BTL IJ (12:53)
--- NOTE | 2020-12-25 12:54 | DI.CT_ITS ---
Exam(s) CT ABDOMEN PELVIS W EXAM: CT ABDOMEN PELVIS W CLINICAL HISTORY: recent appy, r/o abscess. TECHNIQUE: Imaging Protocol: Axial computed tomography images with coronal and sagittal reformatted images were created and reviewed CONTRAST MATERIAL: Intravenous: Omnipaque 100cc Oral: None COMPARISON: CT CT ABDOMEN PELVIS W from 12/15/2020 FINDINGS: VISUALIZED LUNG BASES: Mild pleural based infiltrate noted in the posterior basal segments of both lo wer lobes. No pleural effusions. ABDOMEN: There is no ascites. LIVER: There are no focal hepatic lesions evident . GALLBLADDER/BILIARY: No obvious gallbladder pathology. CBD is not dilated. PANCREAS: No evidence of pancreatic mass nor dilatation of the pancreatic duct. SPLEEN: Spleen is not enlarged. No obvious intrasplenic lesions. Splenic and portal veins are paten t. ADRENALS: There are no significant adrenal masses. KIDNEYS:No cysts evident. No solid renal masses. No calculi nor hydronephrosis.. ABDOMINAL AORTA: Abdominal aorta is not enlarged. LYMPH NODES:There is no retroperitineal nor paraaortic adenopathy. ABDOMINAL WALL/GI: No evidence of significant anterior abdominal wall hernia. No bowel obstruction. PELVIS: GI: There has been interval appendectomy.Some streaking is seen in this region but there is no draina ble fluid collection. There is no free fluid in the dependent aspect pelvis.. No bowel obstruction. LYMPH NODES: There is no intrapelvic nor inguinal adenopathy. REPRODUCTIVE: Prostate not enlarged. URINARY BLADDER: Unremarkable. OSSEOUS: No significant osseous lesions. IMPRESSION: 1. Compared to the prior CT scan of 12/15/2020 there has been interval appendectomy. There is some s treaking in this region but no evidence of drainable fluid collection at this time.. There is also n o free fluid in the dependent aspect of the pelvis. No bowel obstruction 2. Mild infiltrate both lung bases. No pleural effusions. RADIATION DOSE DELIVERED: 874.07mGy.cm Total DLP DATA REPOSITORY: All CT scans at this facility are submitted to the National Radiology Data Registry (NRDR) Dose Index Registry (DIR) with the [employer] ([employer]). RADIATION OPTIMIZATION: All CT scans at this facility use at least one of these dose optimization te chniques: automated exposure control; mA and/or kV adjustment per patient size (includes targeted exa ms where dose is matched to clinical indication); or iterative reconstruction.
== END 2020-12-25 14:21 | disposition home or self-care (01) ==
PROVIDERS: Emergency Provider Physician Assistant
DX: R11.0 Nausea (principal); Z98.890 Other specified postprocedural states
CPT/HCPCS: 80053; 83690; 96361; 96374; 96375; 99285; 74177; 85025; 99284; J0780; J2405; J3490; Q9967

== ENCOUNTER 2024-12-29 12:23 | Emergency (ER) | payer MEDICAID, SELFPAY ==
[2024-12-29 12:27] VITALS: BP 125/85; PULSE 73; RESP 18; TEMP 36.6; O2SAT 97
[2024-12-29] MEDS: Diph,Pertuss(Acell),Tet Vac/Pf 0.5 ML SYR IM (13:32)
[2024-12-29] MEDS: Ibuprofen 600 MG TAB PO (13:33)
[2024-12-29] MEDS: Acetaminophen 500 MG TAB 1000 MG PO (13:34)
[2024-12-29] MEDS: Cellulose,Oxidized 2X3 PKT 1 EACH MC (13:36)
--- NOTE | 2024-12-29 13:51 | W.ED.GENAD ---
Discharge Plan Disposition Patient Disposition: Home Discharge Details Clinical Impression: Laceration of right index finger, Immunization, tetanus-diphtheria Primary Care Provider: [facility],Local ED Provider: Mukund Rodriguez Discharge Instructions Additional Instructions: You were seen in the emergency department for your finger tip laceration which was closed with glue. As we discussed, please keep your wound clean, dry and covered. Please do not soak in a tub, swim or engage in any activities which could introduce dirt into your wound. You may return to the emergency department, go to urgent care if you develop recurrent bleeding. As we discussed if you develop any foul-smelling drainage fevers streaking signs of infection or have any other concerns please return to the emergency department. Please do not remove your dressing for 48 hours. For your pain please take medications as follows: 1. Take acetaminophen (Tylenol), 1,000 mg (two 500 mg tabs) every 6 hours [2. Take ibuprofen (Advil), 400 mg every 6 hours.] HPI General Date/Time Provider Initiated Documentation: 12/29/24 12:49. HPI Narrative: MDM This is a [id number]-bnvosolo 44-year-old normothermic and nontachycardic male with superficial distal fingertip amputation which was closed primarily using cyanoacrylate glue, Surgicel, Telfa dressing, Tegaderm, gauze, and Coban. Patient had no persistent bleeding after dressing. He will keep his dressing in place for the next 48 hours. We discussed to return for streaking signs of infection and any foul-smelling drainage or any increasing pain. Advised him to elevate his hand at night. He had intact sensation and motor function in his right index finger across the MCP, PIP, DIP joints was not concerning for ligamentous injury. Given no bony tenderness I was not concerned for fracture so I did not feel that he required plain films. He understood his return indications and was discharged with empiric trial of expectant outpatient management. He received acetaminophen and ibuprofen for pain. His tetanus was updated in the ED. HPI This is a [id number]-qcxaodys 44-year-old male not on any routine outpatient medications right emergency department via private vehicle in the setting of a right distal index finger superficial amputation. 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 He was unable to control the bleeding so he came to the emergency department. He does not take any blood thinners. He cannot recall the date of his last tetanus. He has not yet taken anything for pain. Exam General: Well-appearing in no acute distress speaking in complete sentences. Head: Normocephalic, atraumatic. Eye: Extraocular eye movements intact. No conjunctival injection. No scleral icterus. Ear, nose, mouth, throat: Grossly normal inspection. Normal voice, handling secretions normally. Neck: Trachea midline. Cardiovascular: Well-perfused distal extremities. Respiratory: Nonlabored respiration. Gastrointestinal: Nondistended abdomen. Musculoskeletal: On the distal tip of the palmar aspect of the right index finger there is a circular approximately 1 cm in diameter superficial amputation with minor venous oozing. No underlying bony tenderness. Full range of motion right index finger across the MCP, PIP, and DIP joints. Skin: Normal for age and race, grossly normal temperature and turgor. No acute rash. Neurologic: Alert and appropriate, no apparent acute deficits. Related Data Allergies Allergy/AdvReac Type Severity Reaction Status Date / Time erythromycin base Allergy Unknown as child Unverified 12/29/24 12:48 General Stated Complaint: Laceration MARCEL: 4 Course Vital Signs Vital signs: Vital Signs Temperature 36.6 C 12/29/24 12:27 Pulse 73 12/29/24 12:27 Respiratory Rate 18 12/29/24 12:27 Blood Pressure 125/85 12/29/24 12:27 Pulse Oximetry 97 12/29/24 12:27 Temperature 36.6 C 12/29/24 12:27 Temperature Source Oral 12/29/24 12:27 Pulse 73 12/29/24 12:27 Respiratory Rate 18 12/29/24 12:27 Blood Pressure 125/85 12/29/24 12:27 Blood Pressure Position Sitting 12/29/24 12:27 Pulse Oximetry 97 12/29/24 12:27 Oxygen Delivery Method Room Air 12/29/24 12:27 Oxygen Flow Rate 0 12/29/24 12:27 End Tidal Co2 1 12/29/24 12:27 Pain Level 0 12/29/24 13:34 Procedure Laceration Laceration 1: Date of Procedure: 12/29/24 Time of procedure: 13:00 Provider that performed the procedure: Mukund Fermin Time Out Performed: No Patient Consented: Verbally Site: hand Side (If applicable): right Description: linear Depth: simple, single layer Local anesthetic: Lidocaine 2% (Ring block) Amount of anesthesia used (mL): 3 Pre-repair:: wound explored, irrigated extensively (Irrigated prior to arrival by patient) and deep structures intact Skin layer closed with: other (Following tourniquet application cyanoacrylate glue was applied with 4 layers, subsequently Surgicel was wrapped prior to nonadherent Telfa, Tegaderm, gauze wrap and Coban. No persistent bleeding was noted.) Medical Decision Making Quality:SDOH Health Related Social Needs: No Data to Display PFSH All Active Problems (Updated 12/29/24 @ 13:56 by Mukund Rodriguez MD) Immunization, tetanus-diphtheria (Acute) Laceration of right index finger (Acute) S/P laparoscopic appendectomy (Acute) Nausea (Acute) Abdominal pain (Acute) Medical History (Updated 12/29/24 @ 13:56 by Mukund Rodriguez MD) No significant past medical history Surgical History (Updated 12/25/20 @ 14:03 by JACQUELINE GORODN) History of appendectomy 12/15/20 Social History Smoking/Tobacco Use Status: Current every day Tobacco Type: cigarettes Smoking risk assessment performed?: Yes Alcohol Intake: current Alcohol Intake frequency: a few times a week Alcohol type: beer, wine and hard liquor Drug use: Occasionally Substance use type: marijuana Do you feel safe at home: Yes Do you feel safe in your relationship?: Yes
== END 2024-12-29 14:02 | disposition home or self-care (01) ==
PROVIDERS: Emergency Provider Emergency Medicine
DX: S61.210A Laceration without foreign body of right index finger without damage to nail, initial encounter (principal); W27.4XXA Contact with kitchen utensil, initial encounter; Y93.G1 Activity, food preparation and clean up; Z23 Encounter for immunization
CPT/HCPCS: 12001; 90471; 90715; 99283; J2003